=== PATIENT | male | born 2000 | race Caucasian/White ===

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

== ENCOUNTER 2023-06-09 18:43 | Emergency (ER) | payer OTHER ==
[~2023-06-09] VITALS: Ht 165.1 cm; Wt 110.0 kg
[~2023-06-09 18:43] MED LIST changes: +FEXO180T94 PO; +FLUT12AE18 IH; -FLUT220HFA IH
[2023-06-09 20:30] VITALS: BP 135/85; PULSE 89; RESP 17; TEMP 97.3
== END 2023-06-10 02:37 | disposition home or self-care (01) ==
LOC: EMS 18:44
DX: S82.892A Other fracture of left lower leg, initial encounter for closed fracture (principal); X58.XXXA Exposure to other specified factors, initial encounter; Y93.89 Activity, other specified; Y92.89 Other specified places as the place of occurrence of the external cause; Y99.8 Other external cause status
CPT/HCPCS: 99283